=== PATIENT | male | born 1960 | race Caucasian/White ===

== ENCOUNTER 2020-03-29 09:35 | Inpatient (IN) | payer OTHER ==
[2020-03-29] VITALS (7 sets, daily range): BP systolic 108–120; BP diastolic 69–72
[~2020-03-29] VITALS: Ht 188 cm; Wt 85.5 kg
--- NOTE | 2020-03-29 09:51 | NUR ---
LATE ENTRY FOR 950 D/T PATIENT CARE: BIBA FOR FALL DOWN STAIRS , FOUND DOWN. +ETOH. RT FOREHEAD LAC. PER EMS, PT FELL DOWN 7 STAIRS AT MAX. C SPINE PRECAUTIONS IN PLACE ON ARRIVAL. 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 REPORT TAKEN FROM EMS. PT PLACED ON ALL MONITORS. PT IS AWAKE, ALERT, ORIENTED TO PERSON, PLACE AND TIME. PT IS NEUROLOGICALLY INTACT, NO DRIFT, BILATERAL GRASP EQUAL. PT DENIES PAIN. KENZIE BOWSER AT BEDSIDE FOR INITIAL ASSESSMENT.
[2020-03-29] MEDS ORDERED: DIPH,PERTUSS(ACELL),TET VAC/PF 0.5 ML IM-VACC ONE ×3 (09:59→12:07)
[2020-03-29] MEDS ORDERED: L.E.T SOLUTION TP ONE (10:00)
--- NOTE | 2020-03-29 10:17 | NUR ---
PT REFUSING TO KEEP C COLLAR ON, PT CONTINUES TO REMOVE COLLAR EACH TIME RN REPLACES IT. PT EDUCATED REGARDING IMPORTANCE OF C SPINE PRECAUTIONS, PT STATES "MY NECK DOESN'T HURT, I DON'T NEED THIS THING." CT PAGED BY THIS RN, PER WAITER/WAITRESS DINING CAR SCANNER IS NOT AVAILABLE YET, HOWEVER TECH WILL COLLECT PT ONCE SCANNER IS FREE.
--- NOTE | 2020-03-29 10:25 | NUR ---
PT TO CT AT THIS TIME, C COLLAR IN PLACE AT TIME OF TRANSPORT.
--- NOTE | 2020-03-29 10:46 | NUR ---
PT BACK FROM CT, AGAIN FOUND ATTEMPTING TO TAKE C COLLAR OFF. PT RE-EDUCATED REGARDING NEED TO COMPLY WITH C SPINE PRECAUTIONS. AWAITING CT READS AND DISPO.
[2020-03-29] MEDS ORDERED: SODIUM CHLORIDE FLUSH 10ML SYR IVF ONE (11:00)
[2020-03-29] MEDS ORDERED: LIDOCAINE-MPF 1%, 5ML ONE ×2 (11:02→11:03)
--- NOTE | 2020-03-29 11:25 | NUR ---
KENZIE BOWSER SUTURING PT AT THIS TIME.
--- NOTE | 2020-03-29 11:27 | NUR ---
KENZIE BOWSER AWARE OF HEAD CT RESULTS.
[2020-03-29 11:29] LABS: MEAN CORPUSCULAR HEMOGLOBIN 36.6 pg (27.5-34.5); MEAN CORPUSCULAR HGB CONC 33.8 g/dL (33.2-36.2); MEAN PLATELET VOLUME 8.5 fL (7.4-10.4); RED BLOOD COUNT 4.61 x10^6/uL (4.38-5.82); RED CELL DISTRIBUTION WIDTH 14.9 % (9.4-14.8)
[2020-03-29 11:38] LABS: ALANINE AMINOTRANSFERASE 95 U/L (12-78); ALBUMIN 3.4 g/dL (3.4-5.0); ANION GAP 7 mmol/L (5-15); CALCIUM 8.7 mg/dL (8.5-10.1); CHLORIDE 107 mmol/L (98-107); CREATININE 0.91 mg/dL (0.7-1.3)
[2020-03-29 11:42] LABS: ALKALINE PHOSPHATASE 100 U/L (45-117); BILIRUBIN,TOTAL 1.1 mg/dL (0.2-1.0); TOTAL PROTEIN 7.7 g/dL (6.4-8.2)
[2020-03-29 11:44] LABS: INTERNATIONAL NORMALIZED RATIO 1.11 (0.93-1.1); PROTHROMBIN TIME 11.4 Seconds (9.6-11.5)
--- NOTE | 2020-03-29 11:48 | NUR ---
critical ethanol level 0.410 reported to kahlil Stringer arrived from pharmacy
[2020-03-29 11:53] LABS: PLATELET COUNT 36 x10^3/uL (130-400)
[2020-03-29 11:54] LABS: MD YES
[2020-03-29 11:56] LABS: ANISOCYTOSIS 1+; LYMPH#(MANUAL) 1.33 x10^3/uL (1-3.4); LYMPHS% (MANUAL) 37 % (22-44); MONOS#(MANUAL) 0.43 x10^3/uL (0.3-2.7); MONOS% (MANUAL) 12 % (2-9); SEG#(MANUAL) 1.84 x10^3/uL (1.8-6.8); SEGS% (MANUAL) 51 % (42-75)
[2020-03-29 11:57] LABS: <PLATELET ESTIMATE> DECREASED; <PLT MORPHOLOGY> NORMAL PLT MORPH
[2020-03-29] MEDS: LEVETIRACETAM 500 MG in SODIUM CHLORIDE 0.9% 100 ML IV SCH (12:04)
--- NOTE | 2020-03-29 12:05 | NUR ---
EDNC SAHM NOTIFIED PLATELETS ARE 36, CRITICAL. ORDER FOR PLATELET TRANSFUSION RECEIVED. SITTER REQUESTED PT IS IMPULISIVE AND NON-COOPERATIVE WITH RN INSTRUCTIONS, HIGH FALL RISK.
--- NOTE | 2020-03-29 12:45 | NUR ---
consent form for platelet transfusion signed by EDMD and pt. pt is a&o to person, place and time. 5/5 strength to all extremities, no drift, face symmetrical, pt follows commands. pupils equal, round and reactive, 3mm. pt informed of results and POC by EDMD Sahm, pt needs frequent re-orientation regarding situation and plan of care. sitter at bedside at this time, seizure precautions in place at this time.
--- NOTE | 2020-03-29 13:08 | NUR ---
platelet transfusion initiated, pt under 1:1 ui ux developer for first 15 min of transfusion. pt a&o to baseline, resps even and unlabored, nsr on color television console monitor with no ectopy. vss. pt has no s/sx adverse rxn to blood product.
[2020-03-29] MEDS ORDERED: SODIUM CHLORIDE FLUSH 10ML SYR IVF PRN (13:30)
--- NOTE | 2020-03-29 14:11 | NUR ---
first unit platelets transfused, pt tolerated well. pt sleeping intermittently, opens eyes spontaneously. awaiting CCU bed assignment and transport.
--- NOTE | 2020-03-29 14:15 | NUR ---
SECOND UNIT PLATELETS REQUESTED FROM BLOOD BANK
--- NOTE | 2020-03-29 14:40 | NUR ---
LATE ENTRY FOR 1440: PLATELETS ISSUED FROM BLOOD BANK ARE B POSITIVE, PT IS A POSITIVE BLOOD TYPE. BLOOD BANK CALLED, PER BLOOD BANK TECH THIS IS ACCEPTABLE AND RN MAY PROCEED WITH TRANSFUSION.
--- NOTE | 2020-03-29 14:44 | NUR ---
pt transfusing second unit platelets, pt a&o to person, place and time, reoriented to situation. speech clear. all extremity strength 5/5, no drift, bilateral grasp equal. all monitors in place, nsr on manager disaster recovery with no ectopy. seizure precautions remain in place. left pupil 3mm, round and reactive, mansi rt pupil as rt eyelid is swollen shut. edmd sahm aware.
--- NOTE | 2020-03-29 15:14 | NUR ---
report called to receiving VALARIE Chavez pt to be transported to room 543.
--- NOTE | 2020-03-29 15:20 | NUR ---
late entry for 1520: EKG performed and reviewed by EDT prior to transport as no EKG had been done yet in ED. EKG reviewed by EDMD [facility], no further orders given. RN ok'd to transport pt.
--- NOTE | 2020-03-29 15:30 | NUR ---
LATE ENTRY FOR 1529 D/T PATIENT CARE: PT TRANSPORTED TO ROOM 542 WITH THIS RN AND TECH, PT'S MENTATION REMAINS AT BASELINE. PT IS AWAKE, ALERT, FOLLOWS COMMANDS. NEURO INTACT. PT REMAINS ORIENTED TO SELF, PLACE, AND TIME. SECOND UNIT PLATELETS COMPLETE, PT TOLERATED WELL. LUNG SOUNDS CLEAR ANTERIOR THROUGHOUT WHEN ASSESSED S/P TRANSFUSION. PT HAS NO S/SX TRANSFUSION RXN. Addendum: 03/29/20 at 1606 by MILENA LATE ENTRY FOR 1529 D/T PATIENT CARE: PT TRANSPORTED TO ROOM 542 WITH THIS RN AND TECH, PT'S MENTATION REMAINS AT BASELINE. PT IS AWAKE, ALERT, FOLLOWS COMMANDS. NEURO INTACT. PT REMAINS ORIENTED TO SELF, PLACE, AND TIME. SECOND UNIT PLATELETS COMPLETE, PT TOLERATED WELL. LUNG SOUNDS CLEAR ANTERIOR THROUGHOUT WHEN ASSESSED S/P TRANSFUSION. PT HAS NO S/SX TRANSFUSION RXN. PT TRANSPORTED WITHOUT ANY INCIDENT, MET AT ROOM BY RECEIVING VALARIE LUCIANO.
[2020-03-29] MEDS ORDERED: LABETALOL 5MG/ML, 20ML IV PRN (17:30)
[2020-03-29] MEDS ORDERED: ENALAPRILAT 1.25 MG/ML, 2ML IV PRN (17:30)
[2020-03-29] MEDS ORDERED: ONDANSETRON 2MG/ML, 2ML IVPush PRN (17:30)
[2020-03-29] MEDS ORDERED: BEER 12 OZ CAN PO SCH (18:30)
[2020-03-29 18:31] LABS: BASOPHILS % (AUTO) 1 % (0-1); EOSINOPHILS % (AUTO) 0 % (1-7); LYMPHOCYTES % (AUTO) 37 % (22-44); MEAN CORPUSCULAR HEMOGLOBIN 36.4 pg (27.5-34.5); MEAN CORPUSCULAR HGB CONC 33.4 g/dL (33.2-36.2); MEAN PLATELET VOLUME 8.2 fL (7.4-10.4); MONOCYTES % (AUTO) 16 % (2-9); NEUTROPHILS % (AUTO) 45 % (42-75); PLATELET COUNT 72 x10^3/uL (130-400); RED BLOOD COUNT 4.11 x10^6/uL (4.38-5.82); RED CELL DISTRIBUTION WIDTH 14.5 % (9.4-14.8)
[2020-03-29 18:37] LABS: MD NO
[2020-03-29] MEDS: THIAMINE 100MG TABLET PO SCH (21:10)
[2020-03-30] MEDS: LEVETIRACETAM 500 MG in SODIUM CHLORIDE 0.9% 100 ML IV SCH ×3 (00:05→23:21)
[2020-03-30 00:10] LABS: BASOPHILS % (AUTO) 1 % (0-1); EOSINOPHILS % (AUTO) 1 % (1-7); LYMPHOCYTES % (AUTO) 35 % (22-44); MEAN CORPUSCULAR HGB CONC 33.5 g/dL (33.2-36.2); MEAN PLATELET VOLUME 8.7 fL (7.4-10.4); MONOCYTES % (AUTO) 18 % (2-9); NEUTROPHILS % (AUTO) 46 % (42-75); PLATELET COUNT 60 x10^3/uL (130-400); RED CELL DISTRIBUTION WIDTH 14.7 % (9.4-14.8)
[2020-03-30 00:37] LABS: MD SCAN
[2020-03-30 06:08] LABS: BASOPHILS % (AUTO) 1 % (0-1); EOSINOPHILS % (AUTO) 1 % (1-7); LYMPHOCYTES % (AUTO) 39 % (22-44); MEAN CORPUSCULAR HEMOGLOBIN 36.6 pg (27.5-34.5); MEAN PLATELET VOLUME 8.8 fL (7.4-10.4); MONOCYTES % (AUTO) 19 % (2-9); NEUTROPHILS % (AUTO) 41 % (42-75); PLATELET COUNT 59 x10^3/uL (130-400); RED BLOOD COUNT 4.05 x10^6/uL (4.38-5.82); RED CELL DISTRIBUTION WIDTH 14.4 % (9.4-14.8)
[2020-03-30 06:13] LABS: ANION GAP 7 mmol/L (5-15); CALCIUM 8.3 mg/dL (8.5-10.1); CHLORIDE 105 mmol/L (98-107)
[2020-03-30 06:18] LABS: ALANINE AMINOTRANSFERASE 79 U/L (12-78); ALKALINE PHOSPHATASE 82 U/L (45-117); BILIRUBIN,TOTAL 1.7 mg/dL (0.2-1.0); CREATININE 0.62 mg/dL (0.7-1.3); TOTAL PROTEIN 6.9 g/dL (6.4-8.2)
[2020-03-30 06:41] LABS: MD NO
[2020-03-30] MEDS: MULTIVITAMIN 1 TABLET PO SCH (08:46)
[2020-03-30] MEDS: FOLIC ACID 1 MG TABLET PO SCH (08:46)
[2020-03-30] MEDS: THIAMINE 100MG TABLET PO SCH ×2 (08:46→21:33)
[2020-03-30 09:25] VITALS: BP 114/78
[2020-03-30 09:45] VITALS: BP 113/64
[2020-03-30] MEDS: POTASSIUM ACID PHOSPHATE 500 MG TABLET.SOL PO SCH ×3 (10:10→21:32)
[2020-03-30 10:59] VITALS: BP 101/63
[2020-03-30 12:00] VITALS: BP 101/63
[2020-03-30 12:16] LABS: BASOPHILS % (AUTO) 1 % (0-1); EOSINOPHILS % (AUTO) 1 % (1-7); LYMPHOCYTES % (AUTO) 37 % (22-44); MEAN CORPUSCULAR HGB CONC 33.3 g/dL (33.2-36.2); MEAN PLATELET VOLUME 8.4 fL (7.4-10.4); MONOCYTES % (AUTO) 21 % (2-9); NEUTROPHILS % (AUTO) 40 % (42-75); PLATELET COUNT 72 x10^3/uL (130-400); RED BLOOD COUNT 3.77 x10^6/uL (4.38-5.82); RED CELL DISTRIBUTION WIDTH 14.7 % (9.4-14.8)
[2020-03-30 12:20] LABS: MD NO
[2020-03-30] MEDS: OXYcodone IR 5MG TABLET PO PRN ×2 (16:04→21:33)
[2020-03-30 17:59] LABS: BASOPHILS % (AUTO) 1 % (0-1); EOSINOPHILS % (AUTO) 1 % (1-7); LYMPHOCYTES % (AUTO) 42 % (22-44); MEAN CORPUSCULAR HEMOGLOBIN 36.2 pg (27.5-34.5); MEAN CORPUSCULAR HGB CONC 33.4 g/dL (33.2-36.2); MEAN PLATELET VOLUME 8.9 fL (7.4-10.4); MONOCYTES % (AUTO) 19 % (2-9); NEUTROPHILS % (AUTO) 37 % (42-75); PLATELET COUNT 71 x10^3/uL (130-400); RED BLOOD COUNT 4.06 x10^6/uL (4.38-5.82); RED CELL DISTRIBUTION WIDTH 14.5 % (9.4-14.8)
[2020-03-30 18:56] LABS: MD NO
[2020-03-30 23:39] LABS: BASOPHILS % (AUTO) 1 % (0-1); EOSINOPHILS % (AUTO) 1 % (1-7); LYMPHOCYTES % (AUTO) 39 % (22-44); MEAN CORPUSCULAR HEMOGLOBIN 36.6 pg (27.5-34.5); MEAN CORPUSCULAR HGB CONC 33.8 g/dL (33.2-36.2); MEAN PLATELET VOLUME 8.6 fL (7.4-10.4); MONOCYTES % (AUTO) 21 % (2-9); NEUTROPHILS % (AUTO) 38 % (42-75); PLATELET COUNT 60 x10^3/uL (130-400); RED BLOOD COUNT 3.93 x10^6/uL (4.38-5.82); RED CELL DISTRIBUTION WIDTH 14.4 % (9.4-14.8)
[2020-03-30 23:43] LABS: MD NO
[2020-03-31 04:20] LABS: BASOPHILS % (AUTO) 1 % (0-1); EOSINOPHILS % (AUTO) 1 % (1-7); LYMPHOCYTES % (AUTO) 34 % (22-44); MEAN CORPUSCULAR HEMOGLOBIN 36.2 pg (27.5-34.5); MEAN PLATELET VOLUME 8.8 fL (7.4-10.4); MONOCYTES % (AUTO) 21 % (2-9); NEUTROPHILS % (AUTO) 43 % (42-75); PLATELET COUNT 60 x10^3/uL (130-400); RED BLOOD COUNT 3.96 x10^6/uL (4.38-5.82); RED CELL DISTRIBUTION WIDTH 14.3 % (9.4-14.8)
[2020-03-31 04:22] LABS: MD NO
[2020-03-31] MEDS: POTASSIUM ACID PHOSPHATE 500 MG TABLET.SOL PO SCH (05:10)
[2020-03-31] MEDS: OXYcodone IR 5MG TABLET PO PRN ×2 (05:11→20:17)
[2020-03-31] MEDS: MULTIVITAMIN 1 TABLET PO SCH (08:14)
[2020-03-31] MEDS: FOLIC ACID 1 MG TABLET PO SCH (08:14)
[2020-03-31] MEDS: THIAMINE 100MG TABLET PO SCH ×2 (08:14→20:11)
[2020-03-31] MEDS: LEVETIRACETAM 500 MG in SODIUM CHLORIDE 0.9% 100 ML IV SCH ×2 (11:47→23:25)
[2020-03-31 12:18] LABS: BASOPHILS % (AUTO) 1 % (0-1); EOSINOPHILS % (AUTO) 1 % (1-7); LYMPHOCYTES % (AUTO) 29 % (22-44); MEAN CORPUSCULAR HEMOGLOBIN 36.7 pg (27.5-34.5); MEAN CORPUSCULAR HGB CONC 34.3 g/dL (33.2-36.2); MEAN PLATELET VOLUME 8.9 fL (7.4-10.4); MONOCYTES % (AUTO) 21 % (2-9); NEUTROPHILS % (AUTO) 49 % (42-75); PLATELET COUNT 56 x10^3/uL (130-400); RED BLOOD COUNT 3.99 x10^6/uL (4.38-5.82); RED CELL DISTRIBUTION WIDTH 14.5 % (9.4-14.8)
[2020-03-31 12:55] LABS: MD SCAN
[2020-03-31 18:03] LABS: MEAN CORPUSCULAR HEMOGLOBIN 36.5 pg (27.5-34.5); MEAN PLATELET VOLUME 8.9 fL (7.4-10.4); PLATELET COUNT 58 x10^3/uL (130-400); RED BLOOD COUNT 4.17 x10^6/uL (4.38-5.82); RED CELL DISTRIBUTION WIDTH 14.4 % (9.4-14.8)
[2020-03-31 19:34] LABS: MD YES
[2020-03-31 19:39] LABS: BANDS%(MANUAL) 3 % (0-7); LYMPH#(MANUAL) 1.09 x10^3/uL (1-3.4); LYMPHS% (MANUAL) 33 % (22-44); MONOS% (MANUAL) 12 % (2-9); REACTIVE LYMPHS # (MANUAL) 0.17 x10^3/uL (0-0); REACTIVE LYMPHS % (MANUAL) 5 % (0-0); SEG#(MANUAL) 1.55 x10^3/uL (1.8-6.8); SEGS% (MANUAL) 47 % (42-75)
[2020-03-31 19:42] LABS: <PLATELET ESTIMATE> DECREASED; <PLT MORPHOLOGY> NORMAL PLT MORPH
[2020-03-31 23:39] LABS: BASOPHILS % (AUTO) 1 % (0-1); EOSINOPHILS % (AUTO) 1 % (1-7); LYMPHOCYTES % (AUTO) 31 % (22-44); MEAN CORPUSCULAR HEMOGLOBIN 36.4 pg (27.5-34.5); MEAN PLATELET VOLUME 9.5 fL (7.4-10.4); MONOCYTES % (AUTO) 19 % (2-9); NEUTROPHILS % (AUTO) 47 % (42-75); PLATELET COUNT 54 x10^3/uL (130-400); RED BLOOD COUNT 4.08 x10^6/uL (4.38-5.82); RED CELL DISTRIBUTION WIDTH 14.2 % (9.4-14.8)
[2020-03-31 23:56] LABS: MD SCAN
[2020-04-01 05:38] LABS: BASOPHILS % (AUTO) 1 % (0-1); EOSINOPHILS % (AUTO) 1 % (1-7); LYMPHOCYTES % (AUTO) 32 % (22-44); MEAN CORPUSCULAR HEMOGLOBIN 36.6 pg (27.5-34.5); MEAN CORPUSCULAR HGB CONC 34.3 g/dL (33.2-36.2); MONOCYTES % (AUTO) 19 % (2-9); NEUTROPHILS % (AUTO) 46 % (42-75); PLATELET COUNT 55 x10^3/uL (130-400); RED BLOOD COUNT 4.22 x10^6/uL (4.38-5.82); RED CELL DISTRIBUTION WIDTH 14.2 % (9.4-14.8)
[2020-04-01 06:08] LABS: MD NO
[2020-04-01] MEDS: MULTIVITAMIN 1 TABLET PO SCH (08:18)
[2020-04-01] MEDS: FOLIC ACID 1 MG TABLET PO SCH (08:18)
[2020-04-01] MEDS: THIAMINE 100MG TABLET PO SCH (08:18)
[2020-04-01 08:39] VITALS: BP 111/69
[2020-04-01 10:01] VITALS: BP 121/72
[2020-04-01] MEDS: OXYcodone IR 5MG TABLET PO PRN (10:10)
[2020-04-01] MEDS: LEVETIRACETAM 500 MG in SODIUM CHLORIDE 0.9% 100 ML IV SCH (11:16)
[2020-04-01 15:31] VITALS: BP 105/67
[2020-04-01] MEDS ORDERED: FOLI-17 PO (17:05)
[2020-04-01] MEDS ORDERED: MULT-449 PO (17:05)
[2020-04-01] MEDS ORDERED: THIA100T67 PO (17:05)
[2020-04-01] MEDS ORDERED: LEVE500T53 PO (17:05)
[2020-04-01] MEDS ORDERED: LEVETIRACETAM 500 MG TABLET PO SCH (21:00)
== END 2020-04-01 17:40 | disposition home or self-care (01) | DRG 85 ==
LOC: ED 12:02 → EDIP 13:19 → CCU 15:27 → 4WST 04-01 09:58
PROVIDERS: ADMIT Internal Medicine; ATTEND Internal Medicine
PROC: 0HQ0XZZ Repair Scalp Skin, External Approach (ICD-10-PCS; principal; 2020-03-29)
PROC: 30233R1 Transfusion of Nonautologous Platelets into Peripheral Vein, Percutaneous Approach (ICD-10-PCS; 2020-03-29)
DX: S06.6X0A Traumatic subarachnoid hemorrhage without loss of consciousness, initial encounter (principal); G92 Toxic encephalopathy; D69.59 Other secondary thrombocytopenia; D75.89 Other specified diseases of blood and blood-forming organs; F10.229 Alcohol dependence with intoxication, unspecified; F12.20 Cannabis dependence, uncomplicated; F17.210 Nicotine dependence, cigarettes, uncomplicated; K70.10 Alcoholic hepatitis without ascites; S01.01XA Laceration without foreign body of scalp, initial encounter; W18.39XA Other fall on same level, initial encounter; Y93.89 Activity, other specified; Y92.89 Other specified places as the place of occurrence of the external cause; Y99.8 Other external cause status
CPT/HCPCS: 36415; 36430; 70450; 71045; 72125; 80053; 80307; 83735; 84100; 85025; 85610; 85730; 86850; 86900; 87081; 90471; 90715; 93005; 99291; G0378; J1953; J2405; 92523-GN; P9035

== ENCOUNTER 2020-04-07 12:22 | Emergency (ER) | payer OTHER ==
[~2020-04-07] VITALS: Ht 188 cm; Wt 70.6 kg
[~2020-04-07 12:22] MED LIST: FOLI-17 PO; LEVE500T53 PO; MULT-449 PO; THIA100T67 PO
[2020-04-07 12:25] VITALS: BP 130/78
--- NOTE | 2020-04-07 12:33 | NUR ---
Tech removed one suture in triage, other sutures were too deep to be removed.
--- NOTE | 2020-04-07 14:45 | NUR ---
Patient/Caregiver given discharge instructions and they have confirmed that they understand the instructions. Patient ambulatory with steady gait.
== END 2020-04-07 14:47 | disposition home or self-care (01) ==
LOC: ED 12:24
DX: T81.33XA Disruption of traumatic injury wound repair, initial encounter (principal); Z48.02 Encounter for removal of sutures; Y83.8 Other surgical procedures as the cause of abnormal reaction of the patient, or of later complication, without mention of misadventure at the time of the procedure
CPT/HCPCS: 99281